=== PATIENT | male | born 1980 | race Caucasian/White ===

== ENCOUNTER 2022-05-07 21:19 | Day surgery (SDC) | payer OTHER ==
--- NOTE | 2022-05-07 21:32 | ED Physician Documentation ---
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 No: Fever (not aware of fevers at home (febrile in ED triage, though)), Nausea, Vomiting, Diarrhea Similar symptoms before: Has not had sx before Recently seen: Not recently seen - Additional information Additional information: Patient complains of abdominal pain, predominantly right lower quadrant. Pain started gradually approximately 24 hours prior to arrival, and has steadily progressed in intensity since onset. Patient denies history of similar pain. The pain is distinctly worse with movement and palpation, partially ameliorated with rest. His only past surgical history relevant to this chief complaint is a right inguinal hernia repair. Patient does not feel that the location of tonight's pain is in same area as the hernia repair. Review of Systems Constitutional: denies: Chills, Sweats Cardiac: reports: Reviewed and negative Respiratory: reports: Reviewed and negative GI: reports: Abdominal Pain, Constipation. denies: Abdominal Swelling, Nausea, Vomiting, Diarrhea : denies: Dysuria, Frequency Musculoskeletal: denies: Back pain PD PAST MEDICAL HISTORY - Past Medical History Past Medical History: No - Past Surgical History Past Surgical History: Yes General: Other (Right inguinal herniorrhaphy) - Allergies Allergies/Adverse Reactions: Allergies Allergy/AdvReac Type Severity Reaction Status Date / Time No Known Drug Allergies Allergy Verified 05/07/22 21:27 PD ED PE NORMAL - Vitals Vital signs reviewed: Yes - General General: Alert and oriented X 3, No acute distress, Well developed/nourished - Cardiac Cardiac: RRR, No murmur - Respiratory Respiratory: No respiratory distress, Clear bilaterally - Abdomen Abdomen: Normal bowel sounds, Soft, Non distended, Other - Back Back: No CVA TTP - Derm Derm: Normal color, Warm and dry PD ED PE EXPANDED - Abdomen Abdomen: Tender to palpation (Tender to palpation across lower abdomen but significantly more in right lower quadrant and mid lower and left lower. He has mild rebound tenderness right lower quadrant as well.) Results - Vitals Vitals: Vital Signs - 24 hr 05/07/22 05/07/22 05/07/22 21:24 21:27 23:27 Temperature 38.1 C H 37.3 C Heart Rate 91 103 H 92 Heart Rate [ Brachial] Respiratory 20 18 Rate Blood Pressure 140/90 H 151/88 H Blood Pressure [Left Brachial artery] O2 Saturation 97 97 95 05/08/22 05/08/22 01:16 08:00 Temperature 37.6 C 37.4 C Heart Rate Heart Rate [ 84 Brachial] Respiratory 18 18 Rate Blood Pressure Blood Pressure 112/74 108/68 [Left Brachial artery] O2 Saturation 97 95 Oxygen O2 Source Room air - Labs Labs: Laboratory Tests 05/07/22 05/07/22 05/07/22 21:31 21:31 22:10 WBC 13.5 H RBC 4.80 Hgb 13.8 L Hct 40.6 L MCV 84.6 MCH 28.8 MCHC 34.0 RDW 12.8 Plt Count 256 MPV 9.7 Neut # (Auto) 11.0 H Lymph # (Auto) 1.6 [place] # (Auto) 0.8 Eos # (Auto) 0.1 Baso # (Auto) 0.1 Absolute Nucleated RBC 0.00 Nucleated RBC % 0.0 Sodium 134 L Potassium 3.6 Chloride 99 L Carbon Dioxide 25 Anion Gap 10.0 BUN 16 Creatinine 0.9 Estimated GFR (MDRD) 92 Glucose 118 H Calcium 9.4 Total Bilirubin 2.5 H AST 28 ALT 30 Alkaline Phosphatase 60 Total Protein 8.2 Albumin 5.0 Globulin 3.2 Albumin/Globulin Ratio 1.6 Lipase 36 Nasal Adenovirus (PCR) NOT DETECTED Nasal B. parapertussis DNA (PCR) NOT DETECTED Nasal Coronavir 229E PCR NOT DETECTED Nasal Coronavir HKU1 PCR NOT DETECTED Nasal Coronavir NL63 PCR NOT DETECTED Nasal Coronavir OC43 PCR NOT DETECTED Nasal Enterovir/Rhinovir PCR NOT DETECTED Nasal Influenza B PCR NOT DETECTED Nasal Influenza A PCR NOT DETECTED Nasal Parainfluen 1 PCR NOT DETECTED Nasal Parainfluen 2 PCR NOT DETECTED Nasal Parainfluen 3 PCR NOT DETECTED Nasal Parainfluen 4 PCR NOT DETECTED Nasal RSV (PCR) NOT DETECTED Nasal B.pertussis DNA PCR NOT DETECTED Nasal C.pneumoniae (PCR) NOT DETECTED Don Human Metapneumo PCR NOT DETECTED Nasal M.pneumoniae (PCR) NOT DETECTED Nasal SARS-CoV-2 (PCR) NOT DETECTED - Rads (name of study) CT A/P with IV contrast Radiology: Prelim report reviewed, See rad report PD Medical Decision Making - ED course Complexity details: reviewed results, re-evaluated patient, considered differential, d/w patient, d/w pci security consultant (D/W Dr. Tavera (on-call [facility] surgery), results of blood tests and CT A/P discussed. Plan is to hold patient in ED overnight (no beds avvailable) and then to OR tomorrow for appendectomy. ) ED course: CBC, ER abdominal panel are ordered. On CBC, mild leukocytosis is noted (13.5 WBC). No concerning findings on ER abdominal panel (mildly elevated bilirubin noted but normal transaminases). CT findings are consistent with acute appendicitis. Results d/w patient. Subsequent to my conversation with Dr. Tavera, I was told that there is a bed available in the hospital and thus patient is taken to [facility] bed - Consults Consults: Consulted (name) (Ayse) Departure - Departure Disposition: ED Transfer to [facility] Clinical Impression: Appendicitis Qualifiers: Appendicitis type: acute appendicitis Acute appendicitis type: with localized peritonitis Appendicitis gangrene presence: without gangrene Appendicitis perforation presence: without perforation Appendicitis abscess presence: without abscess Qualified Code(s): K35.30 - Acute appendicitis with localized peritonitis, without perforation or gangrene Condition: Good Discharge Date/Time: 05/08/22 00:25
[2022-05-07] MEDS ORDERED: iohexoL-300 100 ML VIAL ONE (21:39)
[2022-05-07 21:44] LABS: BASOPHILS # (AUTO) 0.1 10^3/uL (0.0-0.1); BASOPHILS % (AUTO) 0.4 %; EOSINOPHILS # (AUTO) 0.1 10^3/uL (0.0-0.7); EOSINOPHILS % (AUTO) 0.4 %; HCT - HEMATOCRIT 40.6 % (42.0-52.0); HGB - HEMOGLOBIN 13.8 g/dL (14.0-18.0); LYMPHOCYTES # (AUTO) 1.6 10^3/uL (1.5-3.5); LYMPHOCYTES % (AUTO) 11.7 %; MEAN CORPUSCULAR HEMOGLOBIN 28.8 pg (27.0-31.0); MEAN CORPUSCULAR VOLUME 84.6 fL (80.0-94.0); MEAN PLATELET VOLUME 9.7 fL (7.4-11.4); MONOCYTES # (AUTO) 0.8 10^3/uL (0.0-1.0); MONOCYTES % (AUTO) 5.9 %; NEUTROPHILS % (AUTO) 81.2 %; PLT - PLATELET COUNT 256 10^3/uL (130-450); RED CELL DISTRIBUTION WIDTH 12.8 % (12.0-15.0); WHITE BLOOD COUNT 13.5 x10^3/uL (4.8-10.8)
[2022-05-07] MEDS ORDERED: ACETAMINOPHEN 325 MG TABLET PO STA (21:47)
[2022-05-07] MEDS ORDERED: SODIUM CHLORIDE 0.9% 1,000 ML IV STA (21:47)
[2022-05-07 21:57] LABS: ALBUMIN/GLOBULIN RATIO 1.6 (1.0-2.2); BILIRUBIN,TOTAL 2.5 mg/dL (0.2-1.0); CALCIUM 9.4 mg/dL (8.5-10.3); CREATININE 0.9 mg/dL (0.6-1.2); POTASSIUM 3.6 mmol/L (3.5-5.0); TOTAL PROTEIN 8.2 g/dL (6.7-8.2)
[2022-05-07] MEDS ORDERED: iohexoL-300 100 ML VIAL IVP ONE (22:30)
--- NOTE | 2022-05-07 22:55 | CT Report ---
PROCEDURE: ABDOMEN/PELVIS W INDICATIONS: abdominal pain CONTRAST: Omni 300 100ml TECHNIQUE: After the administration of IV contrast, 5 mm thick sections acquired from the diaphragms to the symp hysis. 5 mm thick coronal and sagittal reformats were acquired. For radiation dose reduction, the f ollowing was used: automated exposure control, adjustment of mA and/or kV according to patient size. COMPARISON: None. FINDINGS: Image quality: Excellent. ABDOMEN: Lung bases: Lung bases are clear. Heart size is normal. Solid organs: Liver is enlarged measuring 21.9 cm with steatosis. The spleen is normal in size and e nhancement. Gallbladder is unremarkable Biliary system is non dilated. Pancreas enhances normally. No adrenal nodules. Kidneys demonstrate normal size and enhancement, without hydronephrosis. Peritoneum and bowel: Bowel loops are nonobstructed. The appendix is enlarged measuring approximatel y 1.3 cm. The proximal aspect demonstrates focal calcification. Appendiceal stranding is present. No free air. Mild dependent free fluid is present in the pelvis. Nodes and vessels: No retroperitoneal or mesenteric adenopathy by size criteria. Aorta and inferior vena cava are normal in size. Miscellaneous: No ventral hernias. PELVIS: Genitourinary: Bladder wall thickness is normal. Miscellaneous: No inguinal hernias or adenopathy. Bones: No suspicious bony lesions. No vertebral body compression fractures. IMPRESSION: The appendix is enlarged with periappendiceal inflammatory change most consistent with appendicitis. Calcification is present approximately suggestive of appendicolith. The above findings were discussed with Dr. Jhony Jung on 05/07/2022 at 10:52 PM Reviewed by: Saira Cortes MD on 05/07/2022 10:54 PM PST Approved by: Saira Cortes MD on 05/07/2022 10:54 PM PST Station ID: [id number]
[2022-05-07] MEDS ORDERED: HYDROmorphone 0.5 MG/0.5 ML SYRINGE IVP PRN (23:15)
[2022-05-07] MEDS ORDERED: ONDANSETRON 4 MG/2 ML VIAL IVP PRN (23:15)
[2022-05-07] MEDS ORDERED: oxyCODONE 5 MG TABLET PO PRN (23:15)
[2022-05-07] MEDS ORDERED: SODIUM CHLORIDE FLUSH 0.9% 10 ML SYRINGE IVP PRN (23:15)
[2022-05-07] MEDS ORDERED: ONDANSETRON ODT 4 MG TABLET TL PRN (23:15)
[2022-05-07] MEDS ORDERED: ZOLPIDEM 5 MG TABLET PO PRN (23:15)
[2022-05-08 00:09] LABS: B. PARAPERTUSSIS- RESP PCR PAN NOT DETECTED; B. PERTUSSIS- RESP PCR PANEL NOT DETECTED; C. PNEUMONIAE- RESP PCR PANEL NOT DETECTED; CORONAVIRUS 229E-RESP PCR NOT DETECTED; CORONAVIRUS HKU1-RESP PCR NOT DETECTED; CORONAVIRUS NL63-RESP PCR NOT DETECTED; CORONAVIRUS OC43-RESP PCR NOT DETECTED; HUMAN METAPNEUMOVIRUS NOT DETECTED; INFLUENZA A- RESP PCR PANEL NOT DETECTED; INFLUENZA B - RESP PCR PANEL NOT DETECTED; M. PNEUMONIAE- RESP PCR PANEL NOT DETECTED; PARAINFLUENZA VIRUS 1 NOT DETECTED; PARAINFLUENZA VIRUS 2 NOT DETECTED; PARAINFLUENZA VIRUS 3 NOT DETECTED; PARAINFLUENZA VIRUS 4 NOT DETECTED; RHINOVIRUS/ENTEROVIRUS NOT DETECTED; RSV- RESP PCR PANEL NOT DETECTED; SARS-CoV-2 -RESP PCR PANEL NOT DETECTED
[2022-05-08] MEDS: PIPERACILLIN/TAZOBACTAM 3.375 GM in SODIUM CHLORIDE 0.9% MINIBAG 100 ML IV SCH ×3 (01:04→18:01)
[2022-05-08] MEDS: ACETAMINOPHEN 325 MG TABLET PO PRN ×3 (01:13→22:23)
[2022-05-08] MEDS: D5.45NS W/20 MEQ KCL 1,000 ML IV SCH ×2 (01:53→13:51)
[2022-05-08] MEDS: SODIUM CHLORIDE FLUSH 0.9% 10 ML SYRINGE IVP SCH ×3 (01:55→18:01)
[2022-05-08] MEDS ORDERED: BUPIVACAINE 0.5% PF 30 ML VIAL ONE (08:50)
[2022-05-08] MEDS ORDERED: LIDOCAINE MPF 2%-EPI 1:200000 20 ML VIAL ONE (08:50)
--- NOTE | 2022-05-08 10:20 | HISTORY & PHYSICAL EXAMINATION ---
Chief Complaint - Chief Complaint Chief Complaint: right lower abdominal pain History of Present Illness - History Obtained From Records Reviewed: yes History obtained from: pt Exam Limitations: none - History of Present Illness HPI Comment/Other: right lower quadrant pain and tenderness for nearly 24 hours History - Past Medical History Cardiovascular: reports: None Respiratory: reports: None Neuro: reports: None Endocrine/Autoimmune: reports: None GI: reports: Hemorrhoids : reports: None Psych: reports: None Musculoskeletal: reports: None Derm: reports: None - Past Surgical History General: reports: Other (Right inguinal herniorrhaphy) Meds/Allgy - Allergies Allergies/Adverse Reactions: Allergies Allergy/AdvReac Type Severity Reaction Status Date / Time No Known Drug Allergies Allergy Verified 05/07/22 21:27 Review of Systems - Other Findings Other Findings: 10 pt ros as above otherwise unremarkable Exam - Vital Signs Reviewed Vital Signs: Yes Vital Signs: Vital Signs x48h Temp Pulse Resp BP Pulse Ox 05/08/22 08:00 37.4 C 84 18 108/68 95 - Physical Exam General Appearance: positive: No acute distress, Alert Eyes Bilateral: positive: PERRL ENT: positive: No signs of dehydration Neck: positive: No JVD, Trachea midline Respiratory: positive: No respiratory distress, Breath sounds nml Cardiovascular: positive: Regular rate & rhythm Abdomen: positive: No distention, Other (right lower quadrant tenderness without peritonitis) Neurologic/Psychiatric: positive: Oriented x3 Conclusion/Plan - Problem List (1) Appendicitis Conclusion/Plan: plan appendectomy. parq held and consent obtained Qualifiers: Appendicitis type: acute appendicitis Acute appendicitis type: with localized peritonitis Appendicitis gangrene presence: without gangrene Appendicitis perforation presence: without perforation Appendicitis abscess presence: without abscess Qualified Code(s): K35.30 - Acute appendicitis with localized peritonitis, without perforation or gangrene - Lab Results Fish Bones: 05/07/22 21:31 05/07/22 21:31
[2022-05-08] MEDS ORDERED: fentaNYL 100 MCG/2 ML VIAL ONE ×2 (11:27→12:26)
[2022-05-08] MEDS ORDERED: MIDAZOLAM 2 MG/2 ML VIAL ONE (11:27)
[2022-05-08] MEDS ORDERED: ROCURONIUM 50 MG/5 ML VIAL ONE (11:28)
[2022-05-08] MEDS ORDERED: ACETAMINOPHEN 1,000 MG/100 ML 1,000 MG/100 ML BAG IV ONE (11:46)
[2022-05-08] MEDS ORDERED: LIDOCAINE 2%-EPI 1:100000 20 ML MDV SUBQ ONE ×2 (12:00)
[2022-05-08] MEDS ORDERED: BUPIVACAINE 0.25% PF 30 ML VIAL SUBQ ONE ×2 (12:00)
[2022-05-08] MEDS ORDERED: KETOROLAC 30 MG/ML VIAL ONE (12:27)
[2022-05-08] MEDS ORDERED: ONDANSETRON 4 MG/2 ML VIAL ONE (12:28)
[2022-05-08] MEDS ORDERED: DEXAMETHASONE 4 MG/ML VIAL ONE (12:28)
[2022-05-08] MEDS ORDERED: SUGAMMADEX 200 MG/2 ML VIAL IVP ONE (12:28)
[2022-05-08] MEDS ORDERED: PROPOFOL 200 MG/20 ML VIAL IVP ONE (12:31)
[2022-05-08] MEDS ORDERED: LACTATED RINGERS 1,000 ML IV ONE (12:53)
--- NOTE | 2022-05-08 12:57 | OPERATIVE REPORT ---
Operative Report - General Procedure Date: 05/08/22 Planned Procedure: lap appendectomy Pre-Op Diagnosis: appendicitis Procedure Performed: lap appendectomy Post Op Diagnosis: appendicitis, gangrenoud - Procedure Note Primary Surgeon: nancy roblero Anesthesia Technique: General ET tube, Local Pathology: appendix Estimated Blood Loss (mL): 5 Drain/Tube Type: Other (none) Indications: appendicitis Findings: suppurative and gangrenous Complications: none - Other Other Information/Narrative: The patient was properly identified brought to the operating room and placed in supine position. The patient was previously given antibiotics. Sequential compression devices were placed. General endotracheal anesthesia was induced. The patient was prepped and draped in a sterile fashion. Local anesthetic was given to incision areas. An infraumbilical incision was made in and proceeded down to the fascia. The fascia was incised lifted upwards and abdomen entered with a Veress needle. CO2 was insufflated to a pressure of 15. A 12 mm trocar was placed with 30 degree scope. There was no evidence of injury from Veress needle or trocar placement. Under direct vision a 5 mm trocar was placed suprapubic and a 5 mm trocar was placed in the right upper quadrant. Appendix was identified and retracted anteriorly. Peritoneal attachments were taken down with careful use of cautery. Appendix was mobilized more anterior. A plane was then created between the mesoappendix and the appendix at the cecum. Appendix was divided with an Endo NICOLE intestinal load to include up a small portion of the cecum. The mesoappendix was then divided with an Endo NICOLE vascular load. There was secure closure at the cecum and hemostasis was assured. The appendix was brought out. The abdomen was thoroughly irrigated and hemostasis again assured. Trochars were removed under direct vision. Fascia at the infraumbilical site was closed with a running 0 Vicryl suture. Subcutaneous tissue was irrigated and skin reapproximated with buried interrupted 4-0 Monocryl. Dressings were applied. The patient tolerated the procedure well was awakened and brought to recovery in good condition.
[2022-05-08] MEDS ORDERED: MORPHINE 2 MG/ML CARPUJECT IVP PRN (13:00)
[2022-05-08] MEDS ORDERED: ATROPINE ABBOJECT 1 MG/10 ML SYRINGE IVP PRN (13:00)
[2022-05-08] MEDS ORDERED: ePHEDrine 50 MG/ML VIAL IVP PRN (13:00)
[2022-05-08] MEDS ORDERED: LACTATED RINGERS 1,000 ML IV SCH (13:00)
[2022-05-08] MEDS ORDERED: HYDROmorphone 0.5 MG/0.5 ML SYRINGE IVP PRN (13:00)
[2022-05-08] MEDS ORDERED: fentaNYL 100 MCG/2 ML VIAL IVP PRN (13:00)
[2022-05-08] MEDS ORDERED: NALOXONE 0.4 MG/ML VIAL IVP PRN (13:00)
[2022-05-08] MEDS ORDERED: METOCLOPRAMIDE 10 MG/2 ML VIAL IVP PRN (13:00)
[2022-05-08] MEDS ORDERED: ONDANSETRON 4 MG/2 ML VIAL IVP PRN (13:00)
--- NOTE | 2022-05-08 13:07 | ANESTHESIA ---
Pre-Anesthesia VS, & Labs - Diagnosis acute appendicitis - Procedure lap appy Vital Signs: Temp Pulse Resp BP Pulse Ox O2 Flow Rate 37.8 C 84 16 108/75 94 05/08/22 12:53 05/08/22 12:55 05/08/22 12:55 05/08/22 12:55 05/08/22 12:55 Height: 5 ft 9 in Weight (kg): 99 kg Body Mass Index: 32.2 BMI Classification: Obese - NPO >8 hours - Lab Results Current Lab Results: Laboratory Tests 05/07/22 21:31: Sodium 134 L, Potassium 3.6, Chloride 99 L, Carbon Dioxide 25, Anion Gap 10.0, BUN 16, Creatinine 0.9, Estimated GFR (MDRD) 92, Glucose 118 H, Calcium 9.4, Total Bilirubin 2.5 H, AST 28, ALT 30, Alkaline Phosphatase 60, Total Protein 8.2, Albumin 5.0, Globulin 3.2, Albumin/Globulin Ratio 1.6, Lipase 36 05/07/22 21:31: WBC 13.5 H, RBC 4.80, Hgb 13.8 L, Hct 40.6 L, MCV 84.6, MCH 28.8, MCHC 34.0, RDW 12.8, Plt Count 256, MPV 9.7, Neut # (Auto) 11.0 H, Lymph # (Auto) 1.6, [place] # (Auto) 0.8, Eos # (Auto) 0.1, Baso # (Auto) 0.1, Absolute Nucleated RBC 0.00, Nucleated RBC % 0.0 Fish Bones: 05/07/22 21:31 05/07/22 21:31 Home Medications and Allergies Active Medications Acetaminophen (Acetaminophen 325 Mg Tablet) 650 mg PO Q4HR PRN PRN Reason: Pain 1 to 4, or Fever Last Admin: 05/08/22 01:13 Dose: 650 mg Fentanyl (Fentanyl 100 Mcg/2 Ml Vial) 25 - 50 mcg IVP Q5M PRN PRN Reason: BREAKTHROUGH PAIN (2nd Choice) Stop: 05/09/22 13:01 Hydromorphone HCl (Hydromorphone 0.5 Mg/0.5 Ml Syringe) 0.5 mg IVP Q2H PRN PRN Reason: Pain 8 to 10 Hydromorphone HCl (Hydromorphone 0.5 Mg/0.5 Ml Syringe) 0.2 - 0.6 mg IVP Q5M PRN PRN Reason: PAIN (First Choice) Stop: 05/09/22 13:01 Potassium Chloride/Dextrose/Sod Cl (D5.45ns W/20 Meq Kcl) 1,000 mls @ 100 mls/hr IV .Q10H [facility] Last Infusion: 05/08/22 06:51 Dose: 100 mls/hr Piperacillin Sod/Tazobactam (Sod 3.375 gm/ Sodium Chloride) 100 mls @ 200 mls/hr IV Q6HR [facility] Last Infusion: 05/08/22 06:51 Dose: Infused Lactated Ringer's (Lr) 1,000 mls @ 100 mls/hr IV .Q10H [facility] Stop: 05/08/22 22:59 Morphine Sulfate (Morphine 2 Mg/Ml Carpuject) 2 - 4 mg IVP Q5M PRN PRN Reason: PAIN (3rd Choice) Stop: 05/09/22 13:01 Ondansetron HCl (Ondansetron Odt 4 Mg Tablet) 4 mg TL Q6HR PRN PRN Reason: Nausea / Vomiting Ondansetron HCl (Ondansetron 4 Mg/2 Ml Vial) 4 mg IVP Q6HR PRN PRN Reason: Nausea / Vomiting Last Admin: 05/08/22 05:12 Dose: 4 mg Oxycodone HCl (Oxycodone 5 Mg Tablet) 5 mg PO Q4HR PRN PRN Reason: Pain 5 to 7 Last Admin: 05/08/22 01:13 Dose: 5 mg Sodium Chloride (Sodium Chloride Flush 0.9% 10 Ml Syringe) 10 ml IVP PRN PRN PRN Reason: NEEDED PER PROVIDER ORDERS Sodium Chloride (Sodium Chloride Flush 0.9% 10 Ml Syringe) 10 ml IVP 0100,0900,1700 [facility] Last Admin: 05/08/22 01:55 Dose: Not Given Zolpidem Tartrate (Zolpidem 5 Mg Tablet) 5 mg PO QPM PRN PRN Reason: Insomnia Allergies/Adverse Reactions: Allergies Allergy/AdvReac Type Severity Reaction Status Date / Time No Known Drug Allergies Allergy Verified 05/07/22 21:27 Anes History & Medical History - Anesthetic History Anesthesia Complications: reports: No previous complications Family history of Anesthesia Complications: Denies Family history of Malignant Hyperthermia: Denies - Medical History Cardiovascular: reports: None Pulmonary: reports: None Gastrointestinal: reports: Hemorrhoids Urinary: reports: None Neuro: reports: None Musculoskeletal: reports: None Endocrine/Autoimmune: reports: None Blood Disorders: reports: None Skin: reports: None Smoking Status: Never smoker - Surgical History General: reports: Other (Right inguinal herniorrhaphy) Exam General: Alert, Oriented x3, Cooperative Dental: WNL Mouth Openin Fingerbreadth Neck Mobility: Normal Mallampati classification: I Thyromental Distance: 4-6 cm Respiratory: Lungs clear Cardiovascular: Regular rate Plan Anesthesia Type: General Consent for Procedure(s) Verified and Reviewed: Yes Code Status: Attempt Resuscitation ASA classification: 1-Healthy patient Is this case an emergency?: No
--- NOTE | 2022-05-08 13:53 | ANESTHESIA POST OP EVALUATION ---
Anesthesia Post Eval - Post Anesthesia Eval Vitals: Last Vital Signs Temp 37.4 C 05/08/22 13:33 Pulse 80 05/08/22 13:33 Resp 18 05/08/22 13:33 BP 119/72 05/08/22 13:33 Pulse Ox 96 05/08/22 13:33 O2 Flow Rate CV Function Including HR & BP: Stable Pain Control: Satisfactory Nausea & Vomiting: Negative Mental Status: Baseline Respiratory Status: Airway Patent Hydration Status: Satisfactory Anesthesia Complications: None
[2022-05-09] MEDS: D5.45NS W/20 MEQ KCL 1,000 ML IV SCH (00:55)
[2022-05-09] MEDS: SODIUM CHLORIDE FLUSH 0.9% 10 ML SYRINGE IVP SCH ×2 (00:56→06:24)
[2022-05-09] MEDS: PIPERACILLIN/TAZOBACTAM 3.375 GM in SODIUM CHLORIDE 0.9% MINIBAG 100 ML IV SCH ×2 (00:56→06:23)
[2022-05-09] MEDS: ACETAMINOPHEN 325 MG TABLET PO PRN (05:24)
[2022-05-09 08:41] VITALS: BP 104/64
--- NOTE | 2022-05-09 09:11 | Discharge Plan ---
Discharge Plan Problem Reviewed?: Yes Disposition: Home, Self Care Diet: Regular Activity Restrictions: No Restrictions Shower Restrictions: No Driving Restrictions: No Health Concerns: appendicitis Plan of Treatment: appendectomy 05/08/2022 Assessment: doing well after surgery Additional Instructions or Follow Up instructions: call for fever over 101, incision area redness, continued nausea and vomiting, any concerns [phone] leave the dressings on for a few days ok to shower and get the dressings wet change the dressings as needed light diet for a few days take miralax, colace, milk of magnesia as needed for constipation follow up [place] surgery as desired No Smoking: If you smoke, Please STOP! Call for help. Follow-up with: Harpal Tavera MD [Provider Admit Priv/Credential] -
== END 2022-05-09 11:20 | disposition home or self-care (01) ==
LOC: ED 21:19 → SDS 23:15 → MS2 23:15 → SDS 05-09 11:20
PROVIDERS: ATTEND Surgery
PROC: 0DTJ4ZZ Resection of Appendix, Percutaneous Endoscopic Approach (ICD-10-PCS; principal; 2022-05-08 15:30)
DX: K35.31 Acute appendicitis with localized peritonitis and gangrene, without perforation (principal); D72.829 Elevated white blood cell count, unspecified; E66.9 Obesity, unspecified; Z20.822 Contact with and (suspected) exposure to COVID-19; Z68.32 Body mass index [BMI] 32.0-32.9, adult
CPT/HCPCS: 36415; 44970; 74177; 80053; 83690; 85025; 87633; 99284; 99285; A9270; J0131; J7120; Q9967